=== PATIENT | female | born 1995 | race Caucasian/White ===

== ENCOUNTER → 2020-12-28 23:47 | Observation (INO) ==
[2020-12-29 00:07] LABS: Bacteria,Urine Few per hpf (None-Few); Bilirubin,Urine Negative (Negative); Blood,Urine Negative (Negative); Clarity,Urine Clear (Clear); Color,Urine Colorless (Yellow); Glucose,Urine (UA) Normal (Normal); Ketones,Urine Negative (Negative); Leukocyte Esterase,Urine Trace (Negative); Mucus,Urine Few per lpf (None-Few); Nitrite,Urine Negative (Negative); PH,Urine 6.5 pH Units (5.0-8.0); Protein,Urine Negative (Neg-Trace); RBC,Urine 0-3 per hpf (0-3); Specific Gravity,Urine 1.008 (1.010-1.025); Squamous Epithelial Cell,Urine Few per hpf (None-Few); Urobilinogen,Urine Normal (Normal); WBC,Urine 0-3 per hpf (0-3)
== END | disposition home or self-care (01) ==
LOC: 1NENULAB
PROVIDERS: ADMIT Advanced Practice Midwife; ATTEND Advanced Practice Midwife

== ENCOUNTER → 2021-01-05 21:22 | Observation (INO) ==
[2021-01-05 20:26] LABS: Bilirubin,Urine Negative (Negative); Blood,Urine Negative (Negative); Clarity,Urine Clear (Clear); Color,Urine Light-Yellow (Yellow); Glucose,Urine (UA) Normal (Normal); Ketones,Urine Negative (Negative); Leukocyte Esterase,Urine Moderate (Negative); Nitrite,Urine Negative (Negative); PH,Urine 6.5 pH Units (5.0-8.0); Protein,Urine Negative (Neg-Trace); Specific Gravity,Urine 1.017 (1.010-1.025); Urobilinogen,Urine Normal (Normal)
[2021-01-05 20:36] LABS: Bacteria,Urine Few per hpf (None-Few); Mucus,Urine Few per lpf (None-Few); RBC,Urine 0-3 per hpf (0-3); Squamous Epithelial Cell,Urine Few per hpf (None-Few)
== END | disposition home or self-care (01) ==
LOC: 1NENULAB
PROVIDERS: ADMIT Advanced Practice Midwife; ATTEND Advanced Practice Midwife

== ENCOUNTER 2021-01-21 09:54 | Inpatient (IN) ==
[2021-01-21] MEDS ORDERED: Lidocaine 1% 20 ML MDV INFILT PRN (11:10)
[2021-01-21] MEDS ORDERED: Metoclopramide 10 MG/2 ML VIAL IVP PRN (11:10)
[2021-01-21] MEDS ORDERED: Naloxone 0.4 MG/ML INJ IVP PRN (11:10)
[2021-01-21] MEDS ORDERED: *HR* Nalbuphine 10 MG/ML AMPUL IV PRN (11:10)
[2021-01-21] MEDS ORDERED: Famotidine 20 MG/2 ML VIAL IVP PRN (11:10)
[2021-01-21] MEDS ORDERED: miSOPROStoL 25 MCG TABLET PO SCH (11:15)
[2021-01-21 11:40] LABS: Basophils % 0.2 %; Eosinophils % 0.3 %; Hemoglobin 11.6 g/dL (11.5-15.4); Immature Granulocytes % 0.3 % (0-4); Lymphocytes # 1.8 K/mcL (0.6-4.6); Lymphocytes % 15.6 %; Mean Corpuscular HGB Conc 34.1 g/dL (31.6-35.5); Mean Corpuscular Hemoglobin 33.1 pg (28.0-33.3); Mean Corpuscular Volume 97.1 fL (83.0-100.0); Mean Platelet Volume 10.5 fL (9.4-12.4); Monocytes # 0.6 K/mcL (0.0-1.3); Monocytes % 5.3 %; Neutrophils # 9.2 K/mcL (1.6-8.9); Platelet Count 225 K/mcL (140-400); Red Cell Distribution Width 12.2 % (11.5-14.5); Segmented Neutrophils % 78.3 %; White Blood Count 11.8 K/mcL (4.3-11.1)
[2021-01-21 11:49] LABS: Amphetamine Screen,Urine Negative ng/mL (Cutoff=1000); Barbiturate Screen,Urine Negative ng/mL (Cutoff=200); Benzodiazepines Screen,Urine Negative ng/mL (Cutoff=200); Cannabinoid Screen,Urine Negative ng/mL (Cutoff = 50); Cocaine Screen,Urine Negative ng/mL (Cutoff= 300); Opiate Screen,Urine Negative ng/mL (Cutoff=300); Phencyclidine Screen,Urine Negative ng/mL (Cutoff=25)
[2021-01-21] MEDS ORDERED: Oxytocin 20 units/ LR 1000 mL 20 UNIT/1,000 ML BAG IVC SCH (17:00)
[2021-01-21] MEDS: Ringers Solution, Lactated 1,000 ML IVC SCH ×2 (17:27→20:08)
[2021-01-21] MEDS ORDERED: Ropivacaine/PF 0.2% 20 ML VIAL ONE (18:34)
[2021-01-21] MEDS ORDERED: *HR* FentaNYL (PF) 100 MCG/2 ML VIAL ONE (18:34)
[2021-01-21] MEDS ORDERED: Epidural Premix (fent/bupiv) 110 ML EP ONE (18:35)
[2021-01-21] MEDS ORDERED: Ropivacaine/PF 0.2% 20 ML VIAL EP ONE (21:05)
[2021-01-21] MEDS ORDERED: *HR* FentaNYL (PF) 100 MCG/2 ML VIAL EP ONE (21:05)
[2021-01-21] MEDS ORDERED: EPHEDrine 50 MG/ML VIAL IVP PRN (21:05)
[2021-01-21] MEDS ORDERED: Epidural Premix (fent/bupiv) 110 ML EP SCH (21:15)
[2021-01-21] MEDS ORDERED: Ondansetron 4 MG/2 ML VIAL IVP PRN (22:34)
[2021-01-21] MEDS ORDERED: Ondansetron 4 MG/2 ML VIAL ONE (22:47)
[2021-01-22] MEDS ORDERED: Acetaminophen 325 MG TABLET PO PRN (09:14)
[2021-01-22] MEDS ORDERED: Oxytocin 20 units/ LR 1000 mL 20 UNIT/1,000 ML BAG IVC SCH (09:14)
[2021-01-22] MEDS ORDERED: Benzocaine/Menthol 56 GM AEROSOL SPRAY TP PRN (09:14)
[2021-01-22] MEDS ORDERED: Rho Immune Globulin 1,500 UNIT SYRINGE IM PRN (09:14)
[2021-01-22] MEDS ORDERED: Oxytocin 20 units/ LR 1000 mL 20 UNIT/1,000 ML BAG IVC ONE (09:14)
[2021-01-22] MEDS ORDERED: Measles/Mumps/Rubella Vacc 0.5 ML VIAL SQ PRN (09:14)
[2021-01-22] MEDS: Ibuprofen 600 MG TABLET PO PRN ×3 (10:20→22:36)
[2021-01-22] MEDS: Prenatal Vit/FA 1 EACH TABLET PO SCH (12:35)
[2021-01-23] MEDS: Ibuprofen 600 MG TABLET PO PRN (06:30)
[2021-01-23 07:29] LABS: Basophils % 0.3 %; Eosinophils # 0.1 K/mcL (0.0-0.6); Eosinophils % 1.1 %; Hematocrit 27.4 % (35.3-44.9); Hemoglobin 9.3 g/dL (11.5-15.4); Immature Granulocytes % 0.3 % (0-4); Lymphocytes # 1.9 K/mcL (0.6-4.6); Lymphocytes % 16.6 %; Mean Corpuscular HGB Conc 33.9 g/dL (31.6-35.5); Mean Corpuscular Hemoglobin 33.5 pg (28.0-33.3); Mean Corpuscular Volume 98.6 fL (83.0-100.0); Mean Platelet Volume 10.8 fL (9.4-12.4); Monocytes # 0.9 K/mcL (0.0-1.3); Monocytes % 7.7 %; Neutrophils # 8.6 K/mcL (1.6-8.9); Platelet Count 179 K/mcL (140-400); Red Blood Count 2.78 M/mcL (3.82-4.97); Red Cell Distribution Width 12.3 % (11.5-14.5); White Blood Count 11.6 K/mcL (4.3-11.1)
[2021-01-23 08:08] VITALS: BP 99/63
[2021-01-23] MEDS: Prenatal Vit/FA 1 EACH TABLET PO SCH (08:18)
== END 2021-01-23 12:45 | disposition home or self-care (01) | DRG 768 ==
LOC: 1NENULAB 09:54 → 1NENUOBS 01-22 09:08
PROVIDERS: ADMIT Obstetrics & Gynecology; ATTEND Obstetrics & Gynecology